=== PATIENT | female | born 1975 | race American Indian/Alaskan Native ===

== ENCOUNTER 2018-04-30 09:55 | Emergency (ER) | payer SELFPAY ==
[2018-04-30 10:02] VITALS: BP 127/91
[2018-04-30] MEDS ORDERED: FLEXERIL PO ONE (10:48)
[2018-04-30] MEDS ORDERED: TORADOL IM ONE (10:48)
[2018-04-30] MEDS ORDERED: DELTASONE PO ONE (10:48)
--- NOTE | 2018-04-30 10:55 | Emergency Department Report ---
HPI - General Chief Complaint: Extremity Problem,Nontraumatic Time Seen by Provider: 04/30/18 10:14 - HPI HPI: This is a 42-year-old female with normal medical history presents complaining of right hip and buttock pain that started yesterday. Patient states that she has just driven to [place] and [facility]. 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 Patient's is a pain as a bolus of the right buttock region radiating down the thighs. She denies any trauma or injuries. She denies any calf tenderness or swelling or pain. ED Past Medical Hx - Past Medical History Previous Medical History?: No - Surgical History Additional Surgical History: Left hip replacement and ankle - Social History Smoking Status: Never Smoker Substance Use Type: Alcohol - Medications Home Medications: Home Medications Medication Instructions Recorded Confirmed Last Taken Type Cyclobenzaprine [Flexeril] 10 mg PO QHS PRN #20 tablet 04/30/18 Unknown Rx Diclofenac (Nf) 50 mg PO BID #30 tablet. 04/30/18 Unknown Rx ED Review of Systems ROS: Stated complaint: RT HIP PAIN Other details as noted in HPI Comment: All other systems reviewed and negative Physical Exam - Physical Exam Vital Signs: Vital Signs 04/30/18 10:00 Temperature 97.8 F Pulse Rate 89 Respiratory 18 Rate Blood Pressure 127/91 [Right] O2 Sat by Pulse 100 Oximetry Physical Exam: GENERAL: Alert and oriented x3, no apparent distress, Normal Gait, atraumatic. HEAD: Head is normocephalic and a-traumatic. EYES: Extra ocular muscles are intact. Pupils are equal, round, and reactive to light and accommodation. BACK: Full range of motion, no spinal tenderness, nontender to palpation. EXTREMITIES/MUSCULOSKELETAL: No cyanosis, clubbing, rash, lesions or edema. Full ROM bilaterally. LE Pulses 2+ bilaterally. LE 5+ strength bilaterally, straight leg raise positive right side NEUROLOGIC: The patient is cooperative with no focal neurologic deficits. Normal speech. Normal sensation in bilateral upper and lower extremities, No loss of sensation, . SKIN: Warm and dry, No lesions, No ulceration or induration present. ED Course Vital Signs 04/30/18 10:00 Temperature 97.8 F Pulse Rate 89 Respiratory 18 Rate Blood Pressure 127/91 [Right] O2 Sat by Pulse 100 Oximetry ED Medical Decision Making - Medical Decision Making 42-year-old female presents with sciatic pain to the right side Patient received medications in the ED. She reports better. Discussed follow-up with primary care physician. Vital signs are normal she is in no acute distress. Critical care attestation.: If time is entered above; I have spent that time in minutes in the direct care of this critically ill patient, excluding procedure time. ED Disposition Clinical Impression: Sciatic leg pain Disposition: - TO HOME OR SELFCARE Is pt being admited?: No Does the pt Need Aspirin: No Condition: Stable Instructions: Lumbar Radiculopathy (ED), Sciatica (ED) Additional Instructions: Make sure to follow up with the primary care physician as discussed. Take all your medications as you've been prescribed. If you have any worsening symptoms or develop new symptoms please return to ED immediately. Prescriptions: Cyclobenzaprine [Flexeril] 10 mg PO QHS PRN #20 tablet PRN Reason: Muscle Spasm Diclofenac Dr (Nf) 50 mg PO BID #30 tablet. Referrals: CARLOS CEDENO MD [Primary Care Provider] - 3-5 Days SEFERINO WRIGHT MD [Staff Physician] - 3-5 Days Forms: Accompanied Note, Work/School Release Form(ED) Time of Disposition: 11:00
== END 2018-04-30 12:19 | disposition home or self-care (01) ==
LOC: ED 09:55
DX: M54.31 Sciatica, right side (principal); Z96.642 Presence of left artificial hip joint
CPT/HCPCS: 96372; 99282; J1885; J7512